=== PATIENT | female | born 1955 | race Caucasian/White ===

== ENCOUNTER → 2023-08-16 07:57 | Outpatient (REF) | payer MEDICARE, SELFPAY | LOC: RAD 07:57 | PROVIDERS: ATTENDING PHYSICIAN Nurse Practitioner Family; FAMILY PHYSICIAN Nurse Practitioner Family | DX: E83.52 Hypercalcemia (principal); E34.9 Endocrine disorder, unspecified | CPT/HCPCS: 78071; A9500 ==

== ENCOUNTER → 2023-08-20 13:31 | Outpatient (REF) | payer MEDICARE, SELFPAY | LOC: RAD 13:31 | PROVIDERS: ATTENDING PHYSICIAN Nurse Practitioner Family; FAMILY PHYSICIAN Nurse Practitioner Family | DX: E83.52 Hypercalcemia (principal); E34.9 Endocrine disorder, unspecified | CPT/HCPCS: 76536 ==

== ENCOUNTER → 2024-01-28 17:24 | Outpatient (REF) | payer MEDICARE, SELFPAY | LOC: WDC 17:24 | PROVIDERS: ATTENDING PHYSICIAN Nurse Practitioner Family | DX: Z12.31 Encounter for screening mammogram for malignant neoplasm of breast (principal) | CPT/HCPCS: 77063; 77067 ==

== ENCOUNTER → 2025-01-28 11:34 | Outpatient (REF) | payer MEDICARE, SELFPAY | LOC: WDC 11:34 | PROVIDERS: ATTENDING PHYSICIAN Student in an Organized Health Care Education/Training Program; FAMILY PHYSICIAN Nurse Practitioner Family | DX: Z12.31 Encounter for screening mammogram for malignant neoplasm of breast (principal); Z78.0 Asymptomatic menopausal state | CPT/HCPCS: 77063; 77067; 77080; 77081 ==

== ENCOUNTER 2025-05-07 12:54 | Outpatient (RCR) | payer MEDICARE, SELFPAY ==
[2025-05-07] MEDS: RECLAST 100 IV (13:23)
[2025-05-07 13:44] VITALS: BP 119/74
== END 2025-05-08 23:59 | disposition home or self-care (01) ==
LOC: OID 12:54
PROVIDERS: ATTENDING PHYSICIAN Internal Medicine Endocrinology, Diabetes & Metabolism; FAMILY PHYSICIAN Nurse Practitioner Family
DX: M81.0 Age-related osteoporosis without current pathological fracture (principal)
CPT/HCPCS: 96365; J3489